=== PATIENT | female | born 1950 | race Caucasian/White ===

== ENCOUNTER 2021-08-22 11:28 | Day surgery (SDC) | payer OTHER ==
[~2021-08-22] VITALS: Ht 160 cm; Wt 89.4 kg
[2021-08-22] MEDS ORDERED: fentaNYL citrate 0.05 MG/ML VIAL ONE (13:08)
[2021-08-22] MEDS ORDERED: LIDOCAINE 2% 100 MG/5 ML UJET TP ONE (13:09)
[2021-08-22] MEDS ORDERED: fentaNYL citrate 0.05 MG/ML VIAL IVP ONE (14:15)
== END 2021-08-22 14:12 | disposition home or self-care (01) ==
LOC: MDS 11:28 → MMU 11:30 → MDS 14:12
PROVIDERS: ATTEND Internal Medicine Gastroenterology
DX: Z12.11 Encounter for screening for malignant neoplasm of colon (principal); D12.8 Benign neoplasm of rectum; K57.30 Diverticulosis of large intestine without perforation or abscess without bleeding; I10 Essential (primary) hypertension; E11.9 Type 2 diabetes mellitus without complications; Z79.82 Long term (current) use of aspirin; Z79.899 Other long term (current) drug therapy; Z90.710 Acquired absence of both cervix and uterus; Z20.822 Contact with and (suspected) exposure to COVID-19
CPT/HCPCS: 45385; 87426; J3010